=== PATIENT | male | born 1945 | race Caucasian/White ===

== ENCOUNTER 2020-07-08 13:00 | Outpatient (RCR) | payer MEDICARE, BC | END 2020-07-13 15:00 | disposition home or self-care (01) | LOC: CARDREHAB 13:00 | DX: Z48.812 Encounter for surgical aftercare following surgery on the circulatory system (principal); Z95.4 Presence of other heart-valve replacement; Z98.61 Coronary angioplasty status; Z95.0 Presence of cardiac pacemaker ==

== ENCOUNTER 2020-09-22 14:00 | Outpatient (RCR) | payer MEDICARE, BC | END 2020-10-13 | disposition home or self-care (01) | LOC: CARDREHAB | DX: Z48.812 Encounter for surgical aftercare following surgery on the circulatory system (principal); Z95.2 Presence of prosthetic heart valve; Z95.0 Presence of cardiac pacemaker ==

== ENCOUNTER 2020-10-26 09:00 | Outpatient (RCR) | payer MEDICARE, BC | END 2021-01-24 | disposition home or self-care (01) | LOC: CARDREHAB | DX: Z48.812 Encounter for surgical aftercare following surgery on the circulatory system (principal); Z98.61 Coronary angioplasty status; Z95.0 Presence of cardiac pacemaker ==

== ENCOUNTER 2022-01-30 08:46 | Outpatient (RCR) | payer MEDICARE, BC | END 2022-02-10 | disposition home or self-care (01) | LOC: PT | DX: M54.2 Cervicalgia (principal) ==

== ENCOUNTER 2022-02-12 08:30 | Outpatient (RCR) | payer MEDICARE, BC | END 2022-03-13 | disposition home or self-care (01) | LOC: PT | DX: M54.2 Cervicalgia (principal) ==